=== PATIENT | male | born 1935 | race Caucasian/White ===

== ENCOUNTER 2024-01-12 11:32 | Inpatient (IN) | payer MEDICARE, BC ==
[~2024-01-12] VITALS: Ht 172.7 cm; Wt 79.4 kg
[2024-01-12] MEDS ORDERED: OLANZAPINE 10 MG VIAL IM ONE (12:04)
[2024-01-12 12:11] LABS: BASOPHILS # (AUTO) 0.3 K/uL (0.0-0.2); BASOPHILS % (AUTO) 2.1 % (0.0-2.0); EOSINOPHILS # (AUTO) 0.1 K/uL (0.0-0.7); EOSINOPHILS % (AUTO) 0.5 % (0.0-6.0); HEMATOCRIT 49 % (39-51); HEMOGLOBIN 15.8 g/dL (13.5-17.5); LYMPHOCYTES % (AUTO) 16.4 % (20.0-44.0); MEAN CORPUSCULAR HEMOGLOBIN 29 PG (26.0-33.0); MEAN CORPUSCULAR HGB CONC 33 g/dl (31.0-36.0); MEAN CORPUSCULAR VOLUME 90 fL (80-96); MONOCYTES % (AUTO) 8.4 % (2.0-12.0); NEUTROPHILS # (AUTO) 9.1 K/uL (1.8-8.9); NEUTROPHILS % (AUTO) 72.6 % (43.0-81.0); PLATELET COUNT (AUTO) 198 K/uL (150-450); RED BLOOD CELL COUNT(AUTO) 5.39 MIL/uL (4.5-6.0); RED CELL DISTRIBUTION WIDTH 13.8 % (11.5-15.0); WHITE BLOOD COUNT (AUTO) 12.5 K/uL (4.3-11.0)
[2024-01-12 12:13] LABS: APPEARANCE,URINE Clear (CLEAR); BILIRUBIN,URINE SMALL (NEGATIVE); BLOOD, URINE Trace-intact Ery/uL (NEGATIVE); COLOR,URINE YELLOW (YELLOW); KETONES,URINE Trace mg/dL (NEGATIVE); LEUKOCYTE ESTERASE ,URINE Negative (NEGATIVE); NITRITE, URINE Negative (NEGATIVE); PROTEIN,URINE 30 mg/dl (NEGATIVE); UGLUCOSE Negative (NEGATIVE); UROBILINOGEN,URINE 0.2 EU/dL (0.2)
[2024-01-12] MEDS ORDERED: BUME1TAB8 PO (12:13)
[2024-01-12] MEDS ORDERED: MEMA10TA PO (12:13)
[2024-01-12] MEDS ORDERED: AMLO10TA4 PO (12:13)
[2024-01-12] MEDS: OLANZAPINE 10 MG VIAL IM ONE ×2 (12:26→13:32)
[2024-01-12 12:32] LABS: LACTIC ACID 2.4 mmol/L (0.4-2.0)
[2024-01-12 12:35] LABS: CARBON DIOXIDE 26 mmol/L (21-32); CHLORIDE 106 mmol/L (98-107); CREATININE 1.4 mg/dL (0.6-1.3); GLUCOSE 142 mg/dL (74-106); POTASSIUM 3.7 mmol/L (3.5-5.1); SODIUM SERUM 141 mmol/L (136-145); UREA NITROGEN, BLOOD 29 mg/dL (7-18)
[2024-01-12 12:40] LABS: MUCUS,URINE Many /LPF (None Seen); RBC,URINE 0-2 /HPF (0-2)
[2024-01-12 12:43] LABS: FINE GRANULAR CASTS,URINE Few /LPF (None Seen)
[2024-01-12] MEDS: IV NS 0.9% 1,000 ML BAG IV ONE (13:00)
[2024-01-12 13:06] LABS: ADD URINE CULTURE NO
[2024-01-12 13:26] LABS: ALANINE AMINOTRANSFERASE 16 U/L (12-78); ALBUMIN 3.6 g/dL (3.4-5.0); ALKALINE PHOSPHATASE 69 U/L (46-116); ASPARTATE AMINOTRANSFERASE 15 U/L (15-37); BILIRUBIN,DIRECT 0.6 mg/dL (0.0-0.2); BILIRUBIN,TOTAL 2.3 mg/dL (0.2-1.0); CALCIUM, SERUM 8.7 mg/dL (8.5-10.1); TOTAL PROTEIN, SERUM 7.2 g/dL (6.4-8.2)
[2024-01-12 13:34] LABS: INR 1.13 (0.91-1.10); PARTIAL THROMBOPLASTIN TIME 28.5 SEC (24.3-34.3); PROTHROMBIN TIME 11.9 SECS (9.2-11.1)
[2024-01-12] MEDS ORDERED: ONDANSETRON HCL/PF 4 MG/2 ML VIAL IVP PRN (15:00)
[2024-01-12] MEDS ORDERED: CEFTRIAXONE 1 G in IV D5W 50 ML IV SCH (15:00)
[2024-01-12] MEDS ORDERED: Z GUARD REMEDY 4 OZ OINT TP PRN (15:00)
[2024-01-12] MEDS ORDERED: MAGNESIUM HYDROXIDE 30 ML UDC PO PRN (15:00)
[2024-01-12] MEDS ORDERED: MAG HYDROX/AL HYDROX/SIMETH 30 ML UDC PO PRN (15:00)
[2024-01-12] MEDS: METRONIDAZOLE 500MG/ NS 100ML 500 MG in PREMIX 1 EA IV SCH (15:43)
[2024-01-12] MEDS: IV 1/2NS 1000 ML 1,000 ML IV PRN (15:44)
[2024-01-12 16:00] VITALS: BP 167/123; TEMP 98.1; O2SAT 91
[2024-01-12] MEDS: LEVOFLOXACIN 500 MG /D5W 100ML 500 MG in PREMIX 1 EA IV SCH (17:29)
[2024-01-12 20:00] VITALS: BP 151/91; TEMP 99.1; O2SAT 97
[2024-01-13] VITALS (10 sets, daily range): BP systolic 131–171; BP diastolic 61–93; TEMP 97.4–99.1; O2SAT 92–100
[2024-01-13 07:04] LABS: BASOPHILS % (AUTO) 0.3 % (0.0-2.0); EOSINOPHILS % (AUTO) 0.4 % (0.0-6.0); HEMATOCRIT 44 % (39-51); HEMOGLOBIN 14.6 g/dL (13.5-17.5); LYMPHOCYTES # (AUTO) 1.5 K/uL (0.8-4.8); LYMPHOCYTES % (AUTO) 13.6 % (20.0-44.0); MEAN CORPUSCULAR HEMOGLOBIN 30 PG (26.0-33.0); MEAN CORPUSCULAR HGB CONC 33 g/dl (31.0-36.0); MEAN CORPUSCULAR VOLUME 92 fL (80-96); NEUTROPHILS # (AUTO) 8.4 K/uL (1.8-8.9); NEUTROPHILS % (AUTO) 76.7 % (43.0-81.0); PLATELET COUNT (AUTO) 176 K/uL (150-450); RED BLOOD CELL COUNT(AUTO) 4.82 MIL/uL (4.5-6.0); RED CELL DISTRIBUTION WIDTH 13.9 % (11.5-15.0)
[2024-01-13] MEDS: DIVALPROEX SODIUM 125 MG CAP.SPRINK PO SCH (07:28)
[2024-01-13 07:43] LABS: ALANINE AMINOTRANSFERASE 10 U/L (12-78); ALBUMIN 2.9 g/dL (3.4-5.0); ALKALINE PHOSPHATASE 71 U/L (46-116); ASPARTATE AMINOTRANSFERASE 39 U/L (15-37); BILIRUBIN,TOTAL 1.9 mg/dL (0.2-1.0); CALCIUM, SERUM 8.5 mg/dL (8.5-10.1); CARBON DIOXIDE 28 mmol/L (21-32); CHLORIDE 110 mmol/L (98-107); CREATININE 1.3 mg/dL (0.6-1.3); GLUCOSE 123 mg/dL (74-106); MAGNESIUM 2.1 mg/dL (1.8-2.4); PHOSPHORUS 2.5 mg/dL (2.5-4.9); SODIUM SERUM 147 mmol/L (136-145); TOTAL PROTEIN, SERUM 6.8 g/dL (6.4-8.2); UREA NITROGEN, BLOOD 22 mg/dL (7-18)
[2024-01-13] MEDS: BUMETANIDE (1 MG) 1 MG TABLET PO SCH (08:36)
[2024-01-13] MEDS: MEMANTINE HCL 5 MG TABLET PO SCH (08:36)
[2024-01-13] MEDS: risperiDONE 0.25 MG TABLET PO SCH (08:36)
[2024-01-13] MEDS: AMLODIPINE BESYLATE 10 MG TABLET PO SCH (08:36)
[2024-01-14] VITALS (9 sets, daily range): BP systolic 91–150; BP diastolic 61–100; TEMP 98.1–99; O2SAT 92–99
[2024-01-14] MEDS: IPRATROPIUM NEB FS 0.5 MG/2.5 ML AMPUL.NEB NEB PRN (00:50)
[2024-01-14] MEDS: LEVALBUTEROL HCL NEB 1.25 MG/0.5 ML VIAL.NEB NEB PRN (00:51)
[2024-01-14 11:14] LABS: BASOPHILS # (AUTO) 0.1 K/uL (0.0-0.2); BASOPHILS % (AUTO) 0.8 % (0.0-2.0); EOSINOPHILS # (AUTO) 0.1 K/uL (0.0-0.7); EOSINOPHILS % (AUTO) 1.5 % (0.0-6.0); HEMATOCRIT 44 % (39-51); HEMOGLOBIN 14.5 g/dL (13.5-17.5); LYMPHOCYTES # (AUTO) 1.2 K/uL (0.8-4.8); MEAN CORPUSCULAR HEMOGLOBIN 30 PG (26.0-33.0); MEAN CORPUSCULAR HGB CONC 33 g/dl (31.0-36.0); MEAN CORPUSCULAR VOLUME 91 fL (80-96); MONOCYTES # (AUTO) 0.8 K/uL (0.1-1.30); MONOCYTES % (AUTO) 8.5 % (2.0-12.0); NEUTROPHILS % (AUTO) 76.2 % (43.0-81.0); PLATELET COUNT (AUTO) 167 K/uL (150-450); RED BLOOD CELL COUNT(AUTO) 4.88 MIL/uL (4.5-6.0); RED CELL DISTRIBUTION WIDTH 13.9 % (11.5-15.0); WHITE BLOOD COUNT (AUTO) 9.2 K/uL (4.3-11.0)
[2024-01-14 11:38] LABS: ALANINE AMINOTRANSFERASE 19 U/L (12-78); ALBUMIN 2.8 g/dL (3.4-5.0); ALKALINE PHOSPHATASE 63 U/L (46-116); ASPARTATE AMINOTRANSFERASE 57 U/L (15-37); BILIRUBIN,TOTAL 1.5 mg/dL (0.2-1.0); CALCIUM, SERUM 8.2 mg/dL (8.5-10.1); CARBON DIOXIDE 29 mmol/L (21-32); CHLORIDE 110 mmol/L (98-107); CREATININE 1.2 mg/dL (0.6-1.3); GLUCOSE 151 mg/dL (74-106); PHOSPHORUS 1.9 mg/dL (2.5-4.9); POTASSIUM 3.4 mmol/L (3.5-5.1); SODIUM SERUM 146 mmol/L (136-145); TOTAL PROTEIN, SERUM 6.7 g/dL (6.4-8.2); UREA NITROGEN, BLOOD 18 mg/dL (7-18)
[2024-01-14 11:39] LABS: CREATINE KINASE, TOTAL 482 U/L (39-308)
[2024-01-14] MEDS: ASPIRIN EC 81 MG TABLET.DR PO SCH (13:45)
[2024-01-14] MEDS: LEVOFLOXACIN 250 MG /D5W 50 ML 250 MG in PREMIX 1 EA IV SCH (14:25)
[2024-01-14] MEDS: K PHOS NEUTRAL 250 MG TABLET PO ONE (15:30)
[2024-01-14] MEDS: CLOTRIMAZOLE 1% 15 GM TUBE TP SCH (16:38)
[2024-01-14 16:46] LABS: THYROID STIMULATING HORMONE 2.786 uIU/mL (0.358-3.74)
[2024-01-15] MEDS: ACETAMINOPHEN 325 MG TABLET PO PRN (02:19)
[2024-01-15 03:31] VITALS: O2SAT 96
[2024-01-15 07:32] LABS: CALCIUM, SERUM 7.9 mg/dL (8.5-10.1); CARBON DIOXIDE 25 mmol/L (21-32); CHLORIDE 110 mmol/L (98-107); CREATININE 0.7 mg/dL (0.6-1.3); GLUCOSE 127 mg/dL (74-106); POTASSIUM 3.4 mmol/L (3.5-5.1); SODIUM SERUM 144 mmol/L (136-145); UREA NITROGEN, BLOOD 16 mg/dL (7-18)
[2024-01-15 08:00] VITALS: BP 137/73; TEMP 100; O2SAT 98
[2024-01-15] MEDS: POTASSIUM CHLORIDE 20 MEQ TAB.PRT.SR PO SCH (11:17)
[2024-01-15 12:00] VITALS: BP 150/80; TEMP 98.1; O2SAT 94
[2024-01-15] MEDS: METRONIDAZOLE 500 MG TABLET PO SCH (13:45)
[2024-01-15 16:00] VITALS: BP 130/75; TEMP 99; O2SAT 99
[2024-01-15 16:07] LABS: *SPE ALBUMIN 2.9 g/dL (2.9-4.4); *SPE ALPHA-1-GLOBULIN 0.5 g/dL (0.0-0.4); *SPE ALPHA-2-GLOBULIN 0.7 g/dL (0.4-1.0); *SPE BETA GLOBULIN 0.8 g/dL (0.7-1.3); *SPE GLOBULIN, TOTAL 2.9 g/dL (2.2-3.9); *SPE M-SPIKE Not Observed g/dL (Not Observed); *SPE PROTEIN TOTAL 5.8 g/dL (6.0-8.5); *SPEGAMMA GLOBULIN 0.9 g/dL (0.4-1.8)
[2024-01-15 20:00] VITALS: BP 147/81; TEMP 97.9; O2SAT 95
[2024-01-16] VITALS (7 sets, daily range): BP systolic 99–146; BP diastolic 58–98; TEMP 97.7–98.2; O2SAT 92–97
[2024-01-16 01:09] LABS: PTH, INTACT 44 pg/mL (15-65)
[2024-01-16] MEDS: IV NS 0.9% 1,000 ML IV PRN (06:15)
[2024-01-16] MEDS: ENSURE ENLIVE 237 ML LIQUID (VANILLA) PO SCH (12:58)
[2024-01-17] VITALS (7 sets, daily range): BP systolic 120–156; BP diastolic 71–89; TEMP 98–98.4; O2SAT 93–99
[2024-01-17 07:26] LABS: BASOPHILS # (AUTO) 0.1 K/uL (0.0-0.2); EOSINOPHILS # (AUTO) 0.4 K/uL (0.0-0.7); EOSINOPHILS % (AUTO) 6.2 % (0.0-6.0); HEMATOCRIT 43 % (39-51); HEMOGLOBIN 14.3 g/dL (13.5-17.5); LYMPHOCYTES # (AUTO) 1.5 K/uL (0.8-4.8); LYMPHOCYTES % (AUTO) 21.1 % (20.0-44.0); MEAN CORPUSCULAR HEMOGLOBIN 30 PG (26.0-33.0); MEAN CORPUSCULAR HGB CONC 33 g/dl (31.0-36.0); MEAN CORPUSCULAR VOLUME 91 fL (80-96); MONOCYTES # (AUTO) 0.8 K/uL (0.1-1.30); MONOCYTES % (AUTO) 10.9 % (2.0-12.0); NEUTROPHILS # (AUTO) 4.3 K/uL (1.8-8.9); NEUTROPHILS % (AUTO) 60.8 % (43.0-81.0); PLATELET COUNT (AUTO) 214 K/uL (150-450); RED BLOOD CELL COUNT(AUTO) 4.74 MIL/uL (4.5-6.0); RED CELL DISTRIBUTION WIDTH 13.8 % (11.5-15.0)
[2024-01-17 10:41] LABS: POTASSIUM 3.4 mmol/L (3.5-5.1)
[2024-01-17] MEDS ORDERED: LORAZEPAM 1 MG TABLET PO PRN (12:00)
[2024-01-17] MEDS ORDERED: QUETIAPINE FUMARATE 25 MG TABLET PO PRN (12:00)
[2024-01-17] MEDS: K PHOS NEUTRAL 250 MG TABLET PO ONE (16:13)
[2024-01-18] VITALS: BP_SYST 135; BP_SYST 138; BP_DIAS 75; BP_DIAS 79; TEMP 98.2; O2SAT 95
[2024-01-18 04:00] VITALS: BP 138/76; TEMP 98; O2SAT 96
[2024-01-18 07:57] LABS: BASOPHILS # (AUTO) 0.1 K/uL (0.0-0.2); BASOPHILS % (AUTO) 0.9 % (0.0-2.0); EOSINOPHILS # (AUTO) 0.2 K/uL (0.0-0.7); EOSINOPHILS % (AUTO) 2.6 % (0.0-6.0); HEMATOCRIT 45 % (39-51); HEMOGLOBIN 14.7 g/dL (13.5-17.5); LYMPHOCYTES # (AUTO) 1.8 K/uL (0.8-4.8); LYMPHOCYTES % (AUTO) 19.8 % (20.0-44.0); MEAN CORPUSCULAR HEMOGLOBIN 30 PG (26.0-33.0); MEAN CORPUSCULAR HGB CONC 33 g/dl (31.0-36.0); MEAN CORPUSCULAR VOLUME 92 fL (80-96); MONOCYTES # (AUTO) 0.9 K/uL (0.1-1.30); MONOCYTES % (AUTO) 10.1 % (2.0-12.0); NEUTROPHILS # (AUTO) 6.2 K/uL (1.8-8.9); NEUTROPHILS % (AUTO) 66.6 % (43.0-81.0); PLATELET COUNT (AUTO) 211 K/uL (150-450); RED BLOOD CELL COUNT(AUTO) 4.87 MIL/uL (4.5-6.0); WHITE BLOOD COUNT (AUTO) 9.3 K/uL (4.3-11.0)
[2024-01-18 08:00] VITALS: BP 141/67; TEMP 99.3; O2SAT 99
[2024-01-18 08:02] LABS: CALCIUM, SERUM 8.3 mg/dL (8.5-10.1); CARBON DIOXIDE 28 mmol/L (21-32); CHLORIDE 117 mmol/L (98-107); CREATININE 1.2 mg/dL (0.6-1.3); GLUCOSE 135 mg/dL (74-106); MAGNESIUM 2.4 mg/dL (1.8-2.4); PHOSPHORUS 2.5 mg/dL (2.5-4.9); POTASSIUM 3.7 mmol/L (3.5-5.1); SODIUM SERUM 151 mmol/L (136-145); UREA NITROGEN, BLOOD 21 mg/dL (7-18)
[2024-01-18 08:20] VITALS: O2SAT 99
[2024-01-18 11:36] LABS: EOSINOPHILS % (MANUAL) 3 % (0-4); LYMPHOCYTES % (MANUAL) 25 % (16-48); MONOCYTES % (MANUAL) 5 % (0-11.0); NEUTROPHILS % (MANUAL) 67 (42-76); PLATELET ESTIMATE ADEQUATE
[2024-01-18 12:00] VITALS: BP 121/73; TEMP 99; O2SAT 94
[2024-01-18] MEDS: LEVOFLOXACIN (250MG) 250 MG TABLET PO SCH (15:21)
[2024-01-18] MEDS ORDERED: METR500T PO (15:35)
[2024-01-18] MEDS ORDERED: DIVA125C2 PO (15:35)
[2024-01-18] MEDS ORDERED: LEVO250T59 PO (15:35)
[2024-01-18] MEDS ORDERED: Aspirin Ec PO (15:35)
[2024-01-18] MEDS ORDERED: RISP0.2515 PO (15:35)
[2024-01-18 16:00] VITALS: BP 118/68; TEMP 100; O2SAT 96
== END 2024-01-18 18:14 | DRG 640 ==
LOC: ER 11:32 → TELE 12:52
PROVIDERS: ADMIT Internal Medicine; ATTEND Nurse Practitioner Acute Care
DX: E86.0 Dehydration (principal); N17.0 Acute kidney failure with tubular necrosis; G93.40 Encephalopathy, unspecified; F02.811 Dementia in other diseases classified elsewhere, unspecified severity, with agitation; E86.9 Volume depletion, unspecified; I10 Essential (primary) hypertension; D72.829 Elevated white blood cell count, unspecified; G30.9 Alzheimer's disease, unspecified; E66.01 Morbid (severe) obesity due to excess calories; E83.39 Other disorders of phosphorus metabolism; E83.51 Hypocalcemia; E87.20 Acidosis, unspecified; E87.6 Hypokalemia; J01.90 Acute sinusitis, unspecified; M19.90 Unspecified osteoarthritis, unspecified site; Z88.0 Allergy status to penicillin; E80.6 Other disorders of bilirubin metabolism; E87.0 Hyperosmolality and hypernatremia; Z96.653 Presence of artificial knee joint, bilateral; Z20.822 Contact with and (suspected) exposure to COVID-19; Z68.26 Body mass index [BMI] 26.0-26.9, adult; L98.8 Other specified disorders of the skin and subcutaneous tissue; Z73.6 Limitation of activities due to disability; R62.7 Adult failure to thrive
CPT/HCPCS: 36415; 70450-TC; 71045-TC; 76770-TC; 80048-TC; 80053-TC; 80061-TC; 80076-TC; 81001; 82550-TC; 82553; 82607-TC; 83605-TC; 83735-TC; 83921; 83970; 84100-TC; 84155; 84165; 84439-TC; 84443-TC; 84484-TC; 85025-TC; 85730-TC; 87040-TC; 87086-TC; 94760-TC; 94761-TC; 94799-TC; 97110-TC; 97112-TC; 97530-TC; A4216; A4223; A4349; G0378; J1956; J3490; J7030; J7042